=== PATIENT | male | born 1960 | race Caucasian/White ===

== ENCOUNTER 2017-03-18 13:57 | Emergency (ER) | payer BC ==
[2017-03-18 14:34] LABS: #Eosinphils 0.1 thou/uL (0.0-0.7); #Monocytes 0.5 thou/uL (0.11-0.59); #Neutrophils 2.2 thou/uL (1.40-6.50); %Basophils 0.8 % (0.0-1.0); %Eosinophils 1.5 % (0.0-10.0); %Lymphocytes 41.9 % (21.0-51.0); %Monocytes 11.1 % (0.0-10.0); %Neutrophils 44.7 % (42.0-75.0); Hemoglobin 15.3 g/dL (14.0-18.0); Mean Corpuscular HGB CONC 33.4 g/dL (32.0-36.0); Mean Corpuscular Hemoglobin 30.4 pg (27.0-31.0); Platelet Count 189 thou/uL (130-400); RBC Distribution Width 12.8 % (11.5-14.5); Red Blood Cell (RBC) Count 5.03 mill/uL (4.70-6.10); White Blood Cell (WBC) Count 4.8 thou/uL (4.8-10.8)
[2017-03-18 15:03] LABS: CKMB 2.3 ng/mL (0-6.6); Troponin I 0.011 ng/mL (< 0.028)
[2017-03-18] MEDS ORDERED: Nitroglycerin 0.4 MG TAB (25 Tab Bottle) ONE (15:49)
--- NOTE | 2017-03-18 15:50 | RAD ---
CHEST ONE VIEW: History: Chest pain. FINDINGS: No comparison. Cardiac silhouette is magnified by projection. Pulmonary vasculature is unremarkable. The mediastinum is midline. There is no confluent airspace consolidation or evidence of pneumothorax. porter bath leads overlie the chest. IMPRESSION: No active cardiopulmonary abnormalities are demonstrated. POS: TENISHA
[2017-03-18 16:09] LABS: Albumin 4.4 g/dL (3.5-5.0)
[2017-03-18 16:11] LABS: Calcium 9.7 mg/dL (7.8-10.44); Chloride 101 mmol/L (98-107); Potassium 4.2 mmol/L (3.5-5.1); Sodium 138 mmol/L (136-145)
[2017-03-18 16:12] LABS: Glucose 94 mg/dL (70-105); Protein, Total 7.4 g/dL (6.0-8.3)
[2017-03-18 16:13] LABS: Anion Gap 14 mmol/L (10-20); Carbon Dioxide 27 mmol/L (22-29)
[2017-03-18 16:14] LABS: Bilirubin, Total 0.6 mg/dL (0.2-1.2)
[2017-03-18 16:15] LABS: Alkaline Phosphatase 50 U/L (40-150); Calc. Creatinine Clearance 0 mL/min (70-130); Estimated GFR-MDRD 84
[2017-03-18 16:16] LABS: BUN (Urea Nitrogen) 17 mg/dL (8.4-25.7)
[2017-03-18 16:17] LABS: AST (SGOT) 29 U/L (5-34)
[2017-03-18 16:18] LABS: ALT (SGPT) 40 U/L (8-55); CK (CPK) 116 U/L (30-200); Lipase 41 U/L (8-78)
[2017-03-18 18:14] LABS: Troponin I Less than 0.010 ng/mL (< 0.028)
--- NOTE | 2017-03-20 11:19 | EKG ---
Test Reason : Blood Pressure : / mmHG Vent. Rate : 068 BPM Atrial Rate : 068 BPM P-R Int : 168 ms QRS Dur : 100 ms QT Int : 398 ms P-R-T Axes : 023 -19 040 degrees QTc Int : 423 ms Normal sinus rhythm Septal infarct , age undetermined Abnormal ECG Confirmed by BARRETT DC M.D. ([id number]), school photograph editor MARIA DOLORES GARSIA ([id number]) on 03/20/2017 11:18:27 AM Referred By: Confirmed By:BARRETT DC M.D.
--- NOTE | 2017-04-03 17:53 | EKG ---
Test Reason : Blood Pressure : / mmHG Vent. Rate : 072 BPM Atrial Rate : 072 BPM P-R Int : 146 ms QRS Dur : 102 ms QT Int : 392 ms P-R-T Axes : 018 -21 023 degrees QTc Int : 429 ms Normal sinus rhythm Septal infarct , age undetermined Abnormal ECG Confirmed by BARRETT DC M.D. ([id number]), movie editor MARIA DOLORES GARSIA ([id number]) on 04/03/2017 5:53:00 PM Referred By: Confirmed By:BARRETT DC M.D.
== END 2017-03-18 18:48 | disposition home or self-care (01) ==
LOC: ERS 13:57
DX: R07.89 Other chest pain (principal); E11.9 Type 2 diabetes mellitus without complications; E03.9 Hypothyroidism, unspecified; I10 Essential (primary) hypertension; Z79.82 Long term (current) use of aspirin; Z79.899 Other long term (current) drug therapy; Z79.84 Long term (current) use of oral hypoglycemic drugs
CPT/HCPCS: 71010; 80053; 82553; 83690; 83880; 84484; 85025; 93005

== ENCOUNTER 2017-05-28 07:38 | Outpatient (CLI) | payer BC ==
--- NOTE | 2017-05-28 09:12 | ULT ---
ULTRASOUND ABDOMEN LIMITED: (RIGHT UPPER QUADRANT) HISTORY: 56-year-old male with right upper quadrant abdominal pain. FINDINGS: The gallbladder has normal wall thickness and has no evidence of gallstones or sludge. The hepatic ec hogenicity is diffusely increased, consistent with fatty liver. The right kidney has normal echogenic ity and has no hydronephrosis. The pancreas is obscured by bowel gas. There is no biliary dilation. The common duct caliber is 4 mm. IMPRESSION: 1. Hepatic steatosis. 2. No other pathology identified. 3. Pancreas not visualized. jn [] POS: CET
--- NOTE | 2017-05-28 11:17 | RAD ---
UPPER GI: HISTORY: GERD. Dyspepsia. COMPARISON: None. EXPOSURE: 2.8 minutes. 2415.3 mGy*^m2. FINDINGS: Supine curber abdomen radiograph demonstrates a nonspecific bowel gas pattern. There is a small hiatal hernia without evidence of reflux during intermittent fluoroscopy. Grossly, the esophageal mucosa is unremarkable. Gastric mucosa, and proximal small bowel loops are unremarkab le. Post procedure 2 views abdomen demonstrate contrast in the stomach and proximal small bowel loops. IMPRESSION: Small hiatal hernia with evidence of reflux during fluoroscopy. POS: REY
== END 2017-05-28 07:39 | disposition home or self-care (01) ==
LOC: ULT 07:38
PROVIDERS: ATTEND Family Medicine
DX: K21.9 Gastro-esophageal reflux disease without esophagitis (principal); K30 Functional dyspepsia; K44.9 Diaphragmatic hernia without obstruction or gangrene
CPT/HCPCS: 74247; 76705

== ENCOUNTER 2022-03-05 09:59 | Outpatient (CLI) | payer BC | END 2022-03-05 10:00 | disposition home or self-care (01) | LOC: BICRAD 09:59 | PROVIDERS: ATTEND Internal Medicine Rheumatology | DX: M25.541 Pain in joints of right hand (principal); M25.542 Pain in joints of left hand; M19.042 Primary osteoarthritis, left hand; M19.041 Primary osteoarthritis, right hand; M18.11 Unilateral primary osteoarthritis of first carpometacarpal joint, right hand ==

== ENCOUNTER 2024-05-12 09:27 | Outpatient (CLI) | payer BC | END 2024-05-12 09:28 | disposition home or self-care (01) | LOC: BICMRI 09:27 | PROVIDERS: ATTEND Family Medicine Sports Medicine | DX: M75.111 Incomplete rotator cuff tear or rupture of right shoulder, not specified as traumatic (principal); M25.411 Effusion, right shoulder; M19.011 Primary osteoarthritis, right shoulder ==

== ENCOUNTER 2024-12-21 12:48 | Outpatient (CLI) | payer MEDICARE | END 2024-12-21 12:49 | disposition home or self-care (01) | LOC: BICMRI 12:48 | PROVIDERS: ATTEND Family Medicine Sports Medicine | DX: S83.241A Other tear of medial meniscus, current injury, right knee, initial encounter (principal); M25.461 Effusion, right knee; M70.41 Prepatellar bursitis, right knee; M25.761 Osteophyte, right knee; M94.261 Chondromalacia, right knee ==